=== PATIENT | male | born 1975 | race African-American/Black ===

== ENCOUNTER 2025-02-22 11:52 | Inpatient (IN) | payer MEDICAID, SELFPAY ==
[2025-02-22] VITALS (8 sets, daily range): BP systolic 140–166; BP diastolic 74–108; PULSE 71–94; RESP 16–20; TEMP 36.1–37; O2SAT 97–99; BMI 28.9; BMI 25.9
--- NOTE | 2025-02-22 13:15 | CT_ITS ---
PROCEDURE: ABDOMEN/PELVIS W IV CONT ONLY 02/22/2025 REASON FOR EXAM: ABDOMINAL PAIN 2 day history of abdominal pain. No recent bowel movement. Prior appendectomy. TECHNIQUE: Abdomen and pelvis CT with intravenous contrast. Coronal and Sagittal reconstruction series were provided. PATIENT PREPARATION: Per protocol ORAL CONTRAST TYPE: None. CONTRAST: Isovue-300 VOLUME: 100 mL One or more dose reduction techniques were used (e.g., Automated exposure control, adjustment of the mA and/or kV according to patient size, use of iterative reconstruction technique. RADIATION DOSE SUMMARY: CTDlvol: 20 mGy DLP: 925.86 mGycm COMPARISON: None FINDINGS: Lung bases: Elevation of the posterior medial aspect of the left hemidiaphragm. Coronary artery calcification. Liver: Diffuse fatty infiltration. Gallbladder: Unremarkable Spleen: Normal size. Pancreas: Diffuse enlargement of the pancreas with evidence of peripancreatic edema and small amount of fluid seen in the anterior pararenal spaces bilaterally more prominent on the left side. Findings are in keeping with acute pancreatitis. Adrenals: Unremarkable Kidneys: Unremarkable Bladder: Unremarkable Bowel: Unremarkable Appendix: Status post appendectomy. Lymph nodes: Unremarkable. Vasculature: Mild diffuse atherosclerotic calcifications are noted. Peritoneum / Retroperitoneum: Small amount of fluid seen along the right anterior perirenal space. Bones: Unremarkable CT/Abdomen/Pelvis W IV Cont ONLY IMPRESSION: Findings in keeping with acute pancreatitis as described. Reading Location: [facility]
--- NOTE | 2025-02-22 13:15 | ED.VIS.GI ---
HPI HPI - GI History of Present Illness Chief Complaint: Abd Pain Informant: patient Abdominal Pain/Flank Pain Onset: Days (2) Context: Sudden Onset Timing: Continuous Quality: - (Pressure) Location: Diffuse Worsened by: Nothing Relieved by: - (Stretching) Nausea/Vomiting/Emesis GI Symptom: Positive for Nausea and Vomiting Quality: Positive for Nonbilious; Negative for Blood streaks, Coffee ground or Hematemesis Episodes: 1 Diarrhea/Melena/Hematochezia GI Symptom: Negative for Diarrhea, Melena or Hematochezia Associated Symptoms Associated Symptoms: Negative for Dysuria, Frequency or Hematuria Narrative Narrative: Patient presents with abdominal pain that has been getting worse over the past 2 days. Patient states it began rather suddenly. Patient describes it as a pressure. Patient states it is worse over the upper abdomen and lower abdomen but states it is diffuse across his entire abdomen. Patient states it is better when he is able to put his arms over his head and stretch his abdomen. Patient states nothing makes his pain worse. Patient states he had 1 episode of vomiting. Patient denies any hematemesis or coffee-ground emesis. Patient denies any diarrhea, melena, or hematochezia. Patient denies any urinary complaints. [facility] Medical History (Updated 02/22/25 @ 16:[address] Delfin Begum, DO) Wrist fracture Irregular heart beat Heart attack Diabetes Appendicitis Home Medications ?Medication ?Instructions ?Recorded ?Last Taken ?Type atorvastatin 10 mg tablet 10 mg PO QHS 02/22/25 Unknown History furosemide 20 mg tablet 20 mg PO DAILY 02/22/25 Unknown History insulin glargine 100 unit/mL (3 20 unit subcut QHS 02/22/25 Unknown History mL) subcutaneous pen (Lantus Solostar U-100 Insulin) insulin lispro 100 unit/mL 22 unit subcut TID 02/22/25 Unknown History subcutaneous pen (Humalog KwikPen (U-100) Insulin) metoprolol succinate 50 mg 50 mg PO DAILY 02/22/25 Unknown History tablet,extended release 24 hr pantoprazole 40 mg tablet,delayed 40 mg PO DAILY 02/22/25 Unknown History release sacubitril 49 mg-valsartan 51 mg 1 tab PO BID 02/22/25 Unknown History tablet (Entresto) Allergy/AdvReac Type Severity Reaction Status Date / Time No Known Allergies Allergy Verified 02/22/25 12:00 Surgical History (Updated 02/22/25 @ 14:[address] Delfin Begum DO) Hx of skin graft S/P ORIF (open reduction internal fixation) fracture S/P appendectomy Social History Smoking Status: Current every day smoker tobacco type: cigars ROS ROS ED Constitutional Constitutional ED: Denies chills or fever(s) Eyes Eyes: Denies blurry vision or change in vision ENT ENT ED: Denies rhinorrhea or sore throat Cardiovascular Cardiovascular: Denies chest pain or palpitations Respiratory/Chest Respiratory/Chest: Denies cough or dyspnea Gastrointestinal Gastrointestinal: Reports abdominal pain, nausea and vomiting; Denies diarrhea or melena Genitourinary Genitourinary ED: Denies dysuria or hematuria Musculoskeletal Musculoskeletal: Denies back pain or neck pain Integumentary Denies abscess or rash Neurologic Neurologic: Denies headache(s) or weakness Allergic/Immunologic Allergic/Immunologic ED: Denies mouth swelling or urticaria EXAM Physical Exam Const Vital Signs: 02/22/25 11:55 02/22/25 13:55 02/22/25 15:00 Temperature 96.9 F L Temperature Source Oral Pulse Rate 90 71 71 Respiratory Rate 20 H 19 H 18 Blood Pressure 144/77 H 142/74 H Blood Pressure Mean 99 96 Pulse Ox 99 98 98 Oxygen Delivery Method Room Air 02/22/25 16:41 Temperature 98.1 F Temperature Source Pulse Rate 94 Respiratory Rate 19 H Blood Pressure 166/103 H Blood Pressure Mean 124 Pulse Ox 99 Oxygen Delivery Method Positive well nourished and well developed General Appearance ED: well developed and NAD HEENT Reports moist mucous membranes normocephalic and atraumatic Neck supple and no JVD Resp normal respiratory effort and clear to auscultation bilaterally Cardio regular rate and regular rhythm GI non-distended Palpation: soft and tender epigastric, LLQ, RLQ, LUQ, RUQ, periumbilical and suprapubic; Negative for guarding or rebound tenderness present Neuro CN's II-XII intact bilaterally, moves all extremities and no sensory deficits noted Sensorium / Orientation: alert Motor Exam: strength 5/5 throughout Psych mental status grossly normal and thought process normal MDM MDM MDM Narrative Medical decision making narrative: Differential diagnosis includes bowel obstruction, perforation, electrolyte abnormality, gastritis, pancreatitis, peptic ulcer disease, duodenal ulcer, diabetic ketoacidosis, and urinary tract infection. CT scan of the abdomen and pelvis will be obtained to assess for bowel obstruction, perforation, and pancreatitis. CBC will be obtained to assess for leukocytosis and anemia. Comprehensive metabolic profile will be obtained to assess for hepatic function, renal function, and electrolyte abnormality. Lipase will be obtained to assess for pancreatitis. Urinalysis will be obtained to assess for urinary tract infection and hematuria. History & Record Review Additional record(s) reviewed:: No prior records Lab Data Attestation: I reviewed the patient's lab results. Lab results narrative: CBC was reviewed. There is a slight leukocytosis of 12.9. Platelets were slightly low at 137. The remainder was within normal limits. Comprehensive metabolic profile was reviewed. Potassium was minimally elevated at 5.2. Glucose was slightly elevated at 245. Total bilirubin was mildly elevated at 1.41, AST was 68 and ALT was normal at 30. Alkaline phosphatase was normal. Lipase was reviewed and was elevated at 1836. Urinalysis was reviewed. There is glucosuria of 1000. Ketones were 50, and occult blood was 10. Labs: Laboratory Results - last 24 hr 02/22/25 02/22/25 12:09 16:00 WBC 12.9 H RBC 5.47 Hgb 13.4 Hct 41.5 MCV 75.9 L MCH 24.5 L MCHC 32.3 RDW Std Deviation 42.0 RDW Coeff of Magdalena 15.6 H Plt Count 137 L MPV TNP Immature Gran % (Auto) 0.300 Neut % (Auto) 78.9 H Lymph % (Auto) 9.6 L [place] % (Auto) 10.3 H Eos % (Auto) 0.5 Baso % (Auto) 0.4 Absolute Neuts (auto) 10.2 H Absolute Lymphs (auto) 1.24 Nucleated RBC % 0 Sodium 134 Potassium 5.2 H Chloride 97 L Carbon Dioxide 21.9 Anion Gap 15 BUN 15 Creatinine 1.19 Estim Creat Clear Calc 82.82 Est GFR (MDRD) Non-Af 75 BUN/Creatinine Ratio 12.2 Glucose 245 H Calcium 9.7 Total Bilirubin 1.41 H AST 68 H ALT 30 Alkaline Phosphatase 112 Total Protein 8.4 Albumin 4.6 Globulin 3.8 Albumin/Globulin Ratio 1.2 Lipase 1836 H Urine Color Yellow Urine Clarity Clear Urine pH 6.5 Ur Specific [place] 1.010 Urine Protein 30 H Urine Glucose (UA) 1000 H Urine Ketones 50 H Urine Occult Blood 10 H Urine Nitrite Negative Urine Bilirubin Negative Urine Urobilinogen Normal Ur Leukocyte Esterase Negative Radiography Diagnostic Testing: Clinical Impression(s) from Imaging Studies Abdomen/Pelvis CT 02/22/25 13:15 IMPRESSION: Findings in keeping with acute pancreatitis as described. Reading Location: [facility] CT scan of the abdomen and pelvis was obtained. There is diffuse enlargement of the pancreas and evidence of peripancreatic edema and a small amount of fluid in the anterior pararenal spaces bilaterally. This is consistent with acute pancreatitis. There is no evidence of cholecystitis or cholelithiasis. This was interpreted by the radiologist and was also independently reviewed by myself. Treatment and Re-Evaluation :: Patient was given IV fluids, morphine, and Zofran. Patient was also given a GI cocktail. Patient was having persistent pain. Patient was given a repeat dose of morphine. Patient was advised of his findings. Patient was advised of the need for hospitalization. Patient was agreeable with this. Case was discussed with the hospitalist. She will admit the patient to her service. Patient understood and was agreeable with the plan. All questions were answered. Discharge Plan Dx/Rx/DC Orders Clinical Impression: Acute pancreatitis, Abdominal pain, Diabetes mellitus Disposition Disposition: [facility]
[2025-02-22] MEDS: 0.9% Normal Saline (1000mL) 1,000 ML 999 ML IV (13:25)
[2025-02-22] MEDS: Mag Hydrox/Al Hydrox/Simeth 30 ML UDC PO (13:25)
[2025-02-22] MEDS: Morphine 2 MG/ML Syringe IV (13:25)
[2025-02-22] MEDS: Ondansetron 4 MG/2 ML Vial IV (13:25)
[2025-02-22] MEDS: Lidocaine 2% Viscous15 ML UDC 15 ML PO (13:25)
[2025-02-22 13:31] LABS: Absolute Lymphocyte Count 1.24 X10^3/uL (0.83-4.51); Absolute Neutrophil Count 10.2 X10^3/uL (2.0-7.7); Basophil# 0.05 X10^3/uL; Basophil% 0.4 % (0-1); Eosinophil# 0.07 X10^3/uL; Eosinophils% 0.5 % (0-5); Hematocrit 41.5 % (40-54); Hemoglobin 13.4 g/dL (13.0-16.5); Lymphocyte # 1.24 X10^3/ul (0.83-4.51); Lymphocyte % 9.6 % (19-41); Mean Corp Hgb Conc 32.3 g/dL (32-36); Mean Corpuscular Hgb 24.5 pg (27.0-32.0); Mean Corpuscular Volume 75.9 fL (80-94); Monocyte# 1.33 X10^3/uL; Monocyte% 10.3 % (0-10); NRBC Flagged by Analyzer 0 % (0-5); Neutrophil # 10.17 X10^3/uL (2.7-7.7); Neutrophil % 78.9 % (47-70); Platelet Count 137 K/mm3 (150-450); RBC Distribution Width CV 15.6 % (11.6-14.6); Red Blood Count 5.47 M/mm3 (4.6-6.2); White Blood Count 12.9 K/mm3 (4.4-11.0)
[2025-02-22 14:32] LABS: Lipase 1836 U/L (13-75)
[2025-02-22 14:42] LABS: ALB/GLOB Ratio 1.2 RATIO (0.9-2.4); AST(SGOT) 68 U/L (<=37); Alanine Aminotransfer ALT/SGPT 30 U/L (<=46); Albumin, Serum 4.6 g/dL (3.5-5.0); Alkaline Phosphatase 112 U/L (40-129); Anion Gap 15 (5-15); BUN 15 mg/dL (4-19); BUN/Creat Ratio 12.2 RATIO (10-20); Calcium,Total 9.7 mg/dL (7.6-11.0); Carbon Dioxide 21.9 mmol/L (21.0-32.0); Chloride 97 mmol/L (98-108); Creatinine, Serum 1.19 mg/dL (0.70-1.20); EST Glomerular Filtration Rate 75 (>60); Estimated Creatinine Clearance 82.82 ml/min (50-250); Globulin 3.8 g/dL (2.2-4.2); Glucose 245 mg/dL (70-99); Potassium 5.2 mmol/L (3.3-5.1); Protein, Total 8.4 g/dL (5.9-8.4); Sodium Level 134 mmol/L (133-145); Total Bilirubin 1.41 mg/dL (0.00-1.30)
[2025-02-22 16:11] LABS: Bacteria 0 SEEN /hpf (None Seen); Mucous, Urine 0 SEEN /hpf (<or=2+); Squamous Epithelial Cells - UA 0 SEEN /hpf (0-5)
[2025-02-22] MEDS: Morphine 4 MG/ML Syringe IV ×2 (16:14→18:09)
[2025-02-22 16:17] LABS: Glucose, Dipstick 1000 mg/dl (Normal); Ketone-Dipstick 50 mg/dl (Negative); Leukocyte Esterase-Dipstick Negative /ul (Negative); Nitrite-Dipstick Negative (Negative); Occult Blood-Urine 10 /ul (Negative); Protein-Dipstick 30 mg/dl (Negative); Urine Bilirubin Dipstick Negative (Negative); Urine Urobilinogen Normal (Normal); Urine pH 6.5 (5.0 - 8.0)
[2025-02-22 16:18] LABS: Color, Urine Yellow (Yellow); Urine Clarity Clear (Clear)
--- NOTE | 2025-02-22 16:42 | HP.PCM.HOS_ITS ---
HPI - General General Date of Admission: 02/22/25 Date of Service: 02/22/25 Chief Complaint: Abdominal pain, N/V HPI Narrative The patient is a 49 y/o F w/ PMHx: EtOH abuse (1 pint liquor daily), CAD s/p PCI, HFrEF/Ischemic Cardiomyopathy (EF 35%), Possible CKD stage II per current GFR, HTN, HLD, Diabetes mellitus type II, GERD, Tobacco use who presents to the [facility] ED on 02/22/25 with history of 2 days of continuous diffuse abdominal discomfort with nausea and emesis associated starting rather suddenly described as a pressure-like sensation in the abdomen over both the upper and lower section prompting eventual ED evaluation given not improving. He denies any associated diarrhea. He rates the discomfort to his abdomen 7 out of 10 in severity. He does state that his last alcohol intake was 2 days previously and he normally does a pint of liquor daily. He stopped recently because of probation. He denies any alcohol withdrawal symptoms at this time. Workup in the ED included T96.9 Oral, heart rate 90, BP 144/77, respiratory rate 20, 99% on room air, CBC with WBC 12.9, hemoglobin 13.4, platelet 137 with left shift, CMP with potassium 5.2, chloride 97, BUN/Lauryn 15/1.19, GFR 75, glucose 245, T. bili 1.41, AST 68 otherwise hepatic profile not marked appearing, lipase 1836, urinalysis with protein 30, glucose 2000, ketone 10, occult blood 10 otherwise unremarkable, CT abdomen and pelvis with IV contrast only with findings consistent with acute pancreatitis. In the ED patient ministered 1 L normal saline, GI cocktail, morphine 2 mg IV x 1, morphine 4 mg IV x 1, Zofran 4 mg IV x 1. [facility] Medical History Alcohol abuse Tobacco use HFrEF (heart failure with reduced ejection fraction) Ischemic cardiomyopathy CAD (coronary artery disease) HLD (hyperlipidemia) HTN (hypertension) Diabetes mellitus Home Medications ?Medication ?Instructions ?Recorded ?Last Taken ?Type atorvastatin 10 mg tablet 10 mg PO QHS 02/22/25 Unknow n History furosemide 20 mg tablet 20 mg PO DAILY 02/22/25 Unkn own History insulin glargine 100 unit/mL (3 20 unit subcut QHS Unknown History mL) subcutaneous pen (Lantus Solostar U-100 Insulin) insulin lispro 100 unit/mL 22 unit subcut TID 02/22/25 Unknown History subcutaneous pen (Humalog KwikPen (U-100) Insulin) metoprolol succinate 50 mg 50 mg PO DAILY 02/22/25 Unk nown History tablet,extended release 24 hr pantoprazole 40 mg tablet,delayed 40 mg PO DAILY 02/22 Unknown History release sacubitril 49 mg-valsartan 51 mg 1 tab PO BID 02/22/25 Unknown History tablet (Entresto) Allergy/AdvReac Type Severity Reaction Status Date / Time No Known Allergies Allergy Verified 02/22/25 12:00 Family History Mother Heart disease Hypertension Diabetes CAD (coronary artery disease) Myocardial infarction Father Heart disease Hypertension CAD (coronary artery disease) Myocardial infarction Surgical History S/P coronary angioplasty Hx of skin graft S/P ORIF (open reduction internal fixation) fracture S/P appendectomy Social History household members: spouse and family Smoking Status: Current every day smoker tobacco type: cigarettes Smoking packs per day: 1 Smoking cigarettes per day: 20.0 and cigars alcohol intake: current alcohol intake frequency: 3 or more drinks per day Alcohol type: hard liquor details: ~ 1 pint liquor daily. substance use type: does not use ROS ROS Narrative Admission Review of Systems: CONSTITUTIONAL: No weight loss, fever, chills, + weakness or fatigue. HEENT: Eyes: No visual loss, blurred vision, double vision or yellow sclerae. Ears, Nose, Throat: No hearing loss, sneezing, congestion, runny nose or sore throat. SKIN: No rash or itching, lesions, wounds. CARDIOVASCULAR: No chest pain, chest pressure or chest discomfort, palpitations, edema, orthopnea, syncopal events. RESPIRATORY: No shortness of breath, cough or sputum, wheezing, hemoptysis. GASTROINTESTINAL: + anorexia, nausea, vomiting, abdominal pain. No diarrhea, melena, BRBPR. GENITOURINARY: No dysuria, frequency, urgency or retention. NEUROLOGICAL: No headache, dizziness, syncope, paralysis, ataxia, numbness or tingling in the extremities, focal weakness, change in bowel or bladder control, seizure. MUSCULOSKELETAL: + muscle, back pain, joint pain or stiffness. HEMATOLOGIC: No anemia, bleeding or bruising. LYMPHATICS: No enlarged nodes. No history of splenectomy. PSYCHIATRIC: No history of depression or anxiety. ENDOCRINOLOGIC: No reports of sweating, cold or heat intolerance. No polyuria or polydipsia. ALLERGIES: No history of asthma, hives, eczema or rhinitis. Vital Signs Vital Signs Vital Signs: 02/22/25 11:55 02/22/25 13:55 02/22/25 15:00 Temperature 96.9 F L Temperature Source Oral Pulse Rate 90 71 71 Respiratory Rate 20 H 19 H 18 Blood Pressure 144/77 H 142/74 H Blood Pressure Mean 99 96 Pulse Ox 99 98 98 Oxygen Delivery Method Room Air Weight Weight: 195 lb 15.855 oz Body Mass Index (BMI) 28.9 Physical Exam Narrative Physical Examination: General: Awake, alert, oriented x 3 and cooperative, laying in ED bed, notes persistent abdominal pain ongoing, 7 out of 10 in severity. Skin: Normal color, normal turgor, no icterus, no cyanosis. HEENT: AT/NC, EOMI, PERRLA, moderately dry MM, no carotid bruits or JVD noted. Lungs: Mildly diminished, greater bases, appropriate effort, no rales, ronchi or wheezing. Heart: Regular rate and rhythm; no gallop, rub audible. Abdomen: Soft, mild generalized discomfort to palpation primarily in the upper bilateral quadrants as well as epigastric region but no rebound or guarding currently, no marked distention evident, mildly hyperactive BS, no obvious HSM however difficult evaluation with deeper palpation attempts given discomfort. Extremities: No cyanosis, clubbing, or edema. Neurological: Patient awake, alert, oriented as noted,, cognitive function intact; pupils equally reactive to light and accommodation, cranial nerves grossly normal, moving all 4 extremities, no focal deficits, strength moderately globally decreased secondary to acute presentation complaints. Psychiatric: Affect appears mildly uncomfortable, no acute evidence of depressive or anxiety feelings. Results Lab / Micro Data 02/22/25 12:09 02/22/25 12:09 Labs: Laboratory Results - last 24 hr 02/22/25 12:09: WBC 12.9 H, RBC 5.47, Hgb 13.4, Hct 41.5, MCV 75.9 L, MCH 24.5 L , MCHC 32.3, RDW Std Deviation 42.0, RDW Coeff of Magdalena 15.6 H, Plt Count 137 L, MPV TNP, Immature Gran % (Auto) 0.300, Neut % (Auto) 78.9 H, Lymph % (Auto) 9.6 L, [place] % (Auto) 10.3 H, Eos % (Auto) 0.5, Baso % (Auto) 0.4, Absolute Neuts (auto) 10.2 H, Absolute Lymphs (auto) 1.24, Nucleated RBC % 0, Sodium 134, P otassium 5.2 H, Chloride 97 L, Carbon Dioxide 21.9, Anion Gap 15, BUN 15, Creatinine 1.19, Estim Creat Clear Calc 82.82, Est GFR (MDRD) Non-Af 75, BUN/Creatinine Ratio 12.2, Glucose 245 H, Calcium 9.7, Total Bilirubin 1.41 H, A ST 68 H, ALT 30, Alkaline Phosphatase 112, Total Protein 8.4, Albumin 4.6, Globulin 3.8, Albumin/Globulin Ratio 1.2, Lipase 1836 H 02/22/25 16:00: Urine Color Yellow, Urine Clarity Clear, Urine pH 6.5, Ur Specific [place] 1.010, Urine Protein 30 H, Urine Glucose (UA) 1000 H, Urine Ketones 50 H, Urine Occult Blood 10 H, Urine Nitrite Negative, Urine Bilirubin Negative, Urine Urobilinogen Normal, Ur Leukocyte Esterase Negative Imaging Radiology Impression Abdomen/Pelvis CT 02/22/25 13:15 IMPRESSION: Findings in keeping with acute pancreatitis as described. Reading Location: [id number] Assessment & Plan Assessment/Plan (1) Acute pancreatitis: PLAN: Plan The patient is a 49 y/o F w/ PMHx: EtOH abuse (1 pint liquor daily), CAD s/p PCI, HFrEF/Ischemic Cardiomyopathy (EF 35%), Possible CKD stage II per current GFR, HTN, HLD, Diabetes mellitus type II, GERD, Tobacco use who presents to the [facility] ED on 02/22/25 with history of 2 days of continuous diffuse abdominal discomfort with nausea and emesis associated starting rather suddenly described as a pressure-like sensation in the abdomen over both the upper and lower section prompting eventual ED evaluation given not improving. He denies any associated diarrhea. #1. Acute pancreatitis w/ abdominal pain, N/V with mild hyper bilirubinemia, transaminitis likely secondary to Chronic EtOH abuse: Admission CBC w/ WBC 12.9 with left shift, CMP w/ T. bili mildly elevated 1.41, AST/ALT 68/30, Lipase 1836. Will admit to [facility], maintain on IVFs, NPO with sips of water with medications noted clinically improving, IV PPI, IV/po pain control, trend lipase, CMP. Will obtain RUQ US, FLP to be thorough; however, EtOH consumption risk likely primary etiology for pancreatitis. #2. Hyperkalemia, suspect false given hemolysis present: Admission potassium 5.2 however noted be hemolyzed, suspect falsely elevated as result, will repeat CMP in AM. #3. Thrombocytopenia, unclear chronicity: Admission platelet 137, no prior history, certainly could be acute, stress response, will continue to trend CBC to further elucidate. #4. Posible Chronic Kidney Disease Stage II per GFR trending but no comparison: Admission BUN/Cr 15/.19, GFR 75, baseline renal function unknown, repeat BMP in AM to elucidate chronicity. #5. Hypertension: Continue home regimen including metoprolol, Entresto, temporarily holding Lasix given need for hydration with acute pancreatitis, resume once appropriate, PRN hydralazine. #6. Hyperlipidemia: Will continue patient on statin therapy, FLP in AM. #7. Diabetes mellitus type II: Will continue home insulin regimen however may decrease to one half pending blood sugar assessments while n.p.o., n.p.o. status given acute presentation as noted, maintain acute 6-hour accu checks w/ ISS. #8. Tobacco Abuse: Encouraged cessation, inpatient consultation per RT, NR if desired. #9. CAD: Status post PCI x 2 probably greater than 5 years prior but he is uncertain exactly, continue aspirin, statin, metoprolol, Entresto home regimen. #10. HFrEF/ischemic cardiopathy: Patient reports EF of 35 to 36% most recently, notes that they continue to monitor him in case he needs an AICD, given this history will very gently hydrate and will temporarily hold Lasix but immediately resume once clinically improving, continue aspirin, statin, metoprolol, Entresto. #11. EtOH Abuse: Patient notes routine consumption of 1 pint liquor per day but notes he has had none for 2 days secondary to recently having an ankle tracer placed. Will maintain on CIWA protocol, MVI, thiamine and folic acid. Case management consulted. #12. DVT prophylaxis: Lovenox. Charges/Coding Visit Charges Inpatient E&M: 12553 Init Hosp L3
--- NOTE | 2025-02-22 17:32 | US_ITS ---
PROCEDURE: GALLBLADDER 02/22/2025 REASON FOR EXAM: PANCREATITIS COMPARISON: CT abdomen and pelvis 02/23/2020 FINDINGS: Liver: Diffusely echogenic suggesting fatty infiltration. Mild hepatomegaly, craniocaudal length 17 cm. No focal lesion. Gallbladder: Mildly distended gallbladder. No significant wall thickening. Negative sonographic Beck's sign. No gallstones or sludge. Mild pericholecystic fluid. Common bile duct: Mildly dilated 5 mm.. Pancreas: Increased edema about the pancreas, compatible with known acute pancreatitis. Other: Right kidney: 10.6 cm. No calculi or hydronephrosis. US/Gallbladder IMPRESSION: No evidence of acute cholecystitis. Hepatomegaly and steatosis. Findings compatible with acute pancreatitis. Reading [facility]
[2025-02-22 18:02] LABS: Magnesium 2.1 mg/dL (1.5-2.2); Phosphorus 3.1 mg/dL (2.7-4.5)
[2025-02-22] MEDS: 0.9% Normal Saline (1000mL) 1,000 ML 100 ML IV (18:08)
[2025-02-22 18:15] LABS: Red Blood Cells-Urine 0-5 SEEN /hpf (0-5); White Blood Cells 0-5 SEEN /hpf (0-5)
[2025-02-22 18:27] LABS: Amphetamine Urine PRESUMPTIVE POSITIVE (<1000 ng/mL); Barbiturate Urine NEGATIVE (< 200 ng/mL); Benzodiazepine Urine NEGATIVE (< 200 ng/mL); Buprenorphine Urine NEGATIVE (< 200 ng/mL); Cocaine Urine NEGATIVE (< 300 ng/mL); Fentanyl, Urine NEGATIVE; Methadone Urine NEGATIVE (< 300 ng/mL); Opiates Urine PRESUMPTIVE POSITIVE (< 300 ng/mL); Oxycodone, Urine NEGATIVE (< 100 ng/mL); PCP Urine NEGATIVE (< 25 ng/mL); THC Urine NEGATIVE (< 50 ng/mL)
[2025-02-22] MEDS: Insulin Lispro 100 UNIT/ML INSULN.PEN SC (18:32)
[2025-02-22] MEDS: Ketorolac 15 MG/ML Vial IV (18:33)
[2025-02-22 18:39] LABS: Bedside Glucose 222 mg/dL (74-106)
[2025-02-22 19:48] LABS: Alcohol, Blood (Medical)-Serum < 10.1 mg/dL (<=10.0)
[2025-02-22] MEDS: Atorvastatin Calcium 10 MG Tablet PO (21:47)
[2025-02-22] MEDS: Pantoprazole Sodium 40 MG in 0.9% Normal Saline (100mL MB+) 100 ML 330 MG IV (21:47)
[2025-02-22] MEDS: Insulin Glargine-YFGN 100 UNIT/ML Pen 20 UNIT SC (21:57)
[2025-02-22] MEDS: SACUBITRIL/VALSARTAN 49-51 MG TABLET 1 EACH PO (21:57)
[2025-02-22] MEDS: Metoprolol(XL)Succ 50 MG Tablet PO (22:08)
[2025-02-22] MEDS: oxyCODONE 5 MG Tablet PO (22:08)
[2025-02-22 22:45] LABS: Bedside Glucose 147 mg/dL (74-106)
[2025-02-23] VITALS (7 sets, daily range): BP systolic 133–143; BP diastolic 78–105; PULSE 64–98; RESP 15–16; TEMP 36.4–37; O2SAT 96–100; BMI 28.0
[2025-02-23] MEDS: Insulin Lispro 100 UNIT/ML INSULN.PEN SC ×3 (01:11→22:09)
[2025-02-23] MEDS: Ketorolac 15 MG/ML Vial IV ×3 (01:11→17:09)
[2025-02-23 01:38] LABS: Bedside Glucose 150 mg/dL (74-106)
[2025-02-23] MEDS: 0.9% Normal Saline (1000mL) 1,000 ML 100 ML IV (04:11)
[2025-02-23] MEDS: Acetaminophen 325 MG Tablet 650 MG PO (05:21)
[2025-02-23] MEDS: oxyCODONE 5 MG Tablet PO ×2 (05:21→22:02)
[2025-02-23] MEDS: Ondansetron 4 MG/2 ML Vial IV (05:21)
[2025-02-23 05:56] LABS: Bedside Glucose 109 mg/dL (74-106)
[2025-02-23 06:46] LABS: Absolute Lymphocyte Count 1.58 X10^3/uL (0.83-4.51); Absolute Neutrophil Count 8.5 X10^3/uL (2.0-7.7); Basophil# 0.03 X10^3/uL; Basophil% 0.3 % (0-1); Eosinophils% 1.7 % (0-5); Hematocrit 37.6 % (40-54); Hemoglobin 12.3 g/dL (13.0-16.5); Lymphocyte # 1.58 X10^3/ul (0.83-4.51); Lymphocyte % 13.4 % (19-41); Mean Corp Hgb Conc 32.7 g/dL (32-36); Mean Corpuscular Hgb 24.6 pg (27.0-32.0); Mean Corpuscular Volume 75.2 fL (80-94); Mean Platelet Vol. 11.1 fl (6.2-12.0); Monocyte# 1.41 X10^3/uL; Monocyte% 11.9 % (0-10); NRBC Flagged by Analyzer 0 % (0-5); Neutrophil # 8.51 X10^3/uL (2.7-7.7); Platelet Count 169 K/mm3 (150-450); RBC Distribution Width CV 15.1 % (11.6-14.6); RBC Distribution Width SD 40.5 fl (35.1-43.9); White Blood Count 11.8 K/mm3 (4.4-11.0)
[2025-02-23 07:14] LABS: Cholesterol 180 mg/dL (<=200); High Density Lipoprotein 67 mg/dL; Low Density Lipoprotein Calc. 97 mg/dL; Triglycerides 81 mg/dL; Very Low Density Lipoprotein 16 mg/dL (5-40)
[2025-02-23 07:30] LABS: Lipase 1186 U/L (13-75)
[2025-02-23 07:31] LABS: ALB/GLOB Ratio 1.2 RATIO (0.9-2.4); AST(SGOT) 44 U/L (<=37); Alanine Aminotransfer ALT/SGPT 21 U/L (<=46); Albumin, Serum 3.6 g/dL (3.5-5.0); Alkaline Phosphatase 88 U/L (40-129); Anion Gap 10 (5-15); BUN 13 mg/dL (4-19); BUN/Creat Ratio 11.6 RATIO (10-20); Carbon Dioxide 23.3 mmol/L (21.0-32.0); Chloride 106 mmol/L (98-108); Creatinine, Serum 1.16 mg/dL (0.70-1.20); EST Glomerular Filtration Rate 77 (>60); Glucose 92 mg/dL (70-99); Potassium 3.9 mmol/L (3.3-5.1); Protein, Total 6.6 g/dL (5.9-8.4); Sodium Level 139 mmol/L (133-145); Total Bilirubin 1.03 mg/dL (0.00-1.30)
--- NOTE | 2025-02-23 07:51 | PN.HOSP_ITS ---
Reason for Visit Reason for Visit: Diagnoses Acute pancreatitis without necrosis or infection, unspecified (02/22/25) Subjective Subjective Feeling better. Objective Data Objective Data Vital Signs: Vital Signs Temp Pulse Resp BP Pulse Ox O2 Del Method 36.8 C 76 16 136/105 H 99 Room Air 02/23/25 05:10 02/23/25 05:10 02/23/25 05:10 02/23/25 05:10 02/23/25 05:10 02/23/25 05:10 Oxygen Delivery Method Room Air Weight: 86 kg Body Mass Index (BMI) 28.0 Intake & Output: Intake and Output for Last 24 Hours 02/21/25 02/22/25 02/23/25 23:59 23:59 23:59 Intake Total 1160 / 1160 1050 / 1050 Balance 1160 / 1160 1050 / 1050 Lab / Micro Data 02/23/25 06:06 02/23/25 06:06 Labs: Laboratory Results - last 24 hr 02/22/25 12:09: WBC 12.9 H, RBC 5.47, Hgb 13.4, Hct 41.5, MCV 75.9 L, MCH 24.5 L , MCHC 32.3, RDW Std Deviation 42.0, RDW Coeff of Magdalena 15.6 H, Plt Count 137 L, MPV TNP, Immature Gran % (Auto) 0.300, Neut % (Auto) 78.9 H, Lymph % (Auto) 9.6 L, [place] % (Auto) 10.3 H, Eos % (Auto) 0.5, Baso % (Auto) 0.4, Absolute Neuts (auto) 10.2 H, Absolute Lymphs (auto) 1.24, Nucleated RBC % 0, Sodium 134, P otassium 5.2 H, Chloride 97 L, Carbon Dioxide 21.9, Anion Gap 15, BUN 15, Creatinine 1.19, Estim Creat Clear Calc 82.82, Est GFR (MDRD) Non-Af 75, BUN/Creatinine Ratio 12.2, Glucose 245 H, Calcium 9.7, Phosphorus 3.1, Magnesium 2.1, Total Bilirubin 1.41 H, AST 68 H, ALT 30, Alkaline Phosphatase 112, Total Protein 8.4, Albumin 4.6, Globulin 3.8, Albumin/Globulin Ratio 1.2, Lipase 1836 H 02/22/25 16:00: Urine Color Yellow, Urine Clarity Clear, Urine pH 6.5, Ur Specific [place] 1.010, Urine Protein 30 H, Urine Glucose (UA) 1000 H, Urine Ketones 50 H, Urine Occult Blood 10 H, Urine Nitrite Negative, Urine Bilirubin Negative, Urine Urobilinogen Normal, Ur Leukocyte Esterase Negative, Urine RBC 0-5 SEEN, Urine WBC 0-5 SEEN, Ur Squamous Epith Cells 0 SEEN, Urine Bacteria 0 SEEN, Urine Mucus 0 SEEN, Urine Opiates Screen PRESUMPTIVE POSITIVE, U Buprenorphine Qual NEGATIVE, Ur Oxycodone Screen NEGATIVE, Urine Methadone Screen NEGATIVE, Urine Fentanyl Screen NEGATIVE, Ur Barbiturates Screen NEGATIVE, Ur Phencyclidine Scrn NEGATIVE, Ur Amphetamines Screen PRESUMPTIVE POSITIVE, U Benzodiazepines Scrn NEGATIVE, Urine Cocaine Screen NEGATIVE, U Cannabinoids Screen NEGATIVE 02/22/25 18:15: POC Glucose 222 H 02/22/25 18:25: Ethyl Alcohol < 10.1 02/22/25 21:52: POC Glucose 147 H 02/23/25 01:10: POC Glucose 150 H 02/23/25 05:13: POC Glucose 109 H 02/23/25 06:06: WBC 11.8 H, RBC 5.00, Hgb 12.3 L, Hct 37.6 L, MCV 75.2 L, MCH 24.6 L, MCHC 32.7, RDW Std Deviation 40.5, RDW Coeff of Magdalena 15.1 H, Plt Count 169, MPV 11.1, Immature Gran % (Auto) 0.700, Neut % (Auto) 72.0 H, Lymph % (Auto) 13.4 L, [place] % (Auto) 11.9 H, Eos % (Auto) 1.7, Baso % (Auto) 0.3, A bsolute Neuts (auto) 8.5 H, Absolute Lymphs (auto) 1.58, Nucleated RBC % 0, Sodium 139, Potassium 3.9, Chloride 106, Carbon Dioxide 23.3, Anion Gap 10, BUN 13, Creatinine 1.16, Estim Creat Clear Calc 83.70, Est GFR (MDRD) Non-Af 77, BUN/Creatinine Ratio 11.6, Glucose 92, Calcium 9.0, Total Bilirubin 1.03, AST 44 H, ALT 21, Alkaline Phosphatase 88, Total Protein 6.6, Albumin 3.6, Globulin 3.0, Albumin/Globulin Ratio 1.2, Triglycerides 81, Cholesterol 180, LDL Cholesterol, Calc 97, VLDL Cholesterol 16, HDL Cholesterol 67, Cholesterol/HDL Ratio 2.70, Lipase 1186 H Radiography Diagnostic Testing: Radiology Impression Abdomen/Pelvis CT 02/22/25 13:15 IMPRESSION: Findings in keeping with acute pancreatitis as described. Reading Location: [id number] Gallbladder Ultrasound 02/22/25 17:32 IMPRESSION: No evidence of acute cholecystitis. Hepatomegaly and steatosis. Findings compatible with acute pancreatitis. [facility] Physical Exam Const alert and no apparent distress HEENT head/scalp atraumatic and moist oral mucous membranes Resp normal respiratory effort and no retractions GI normal to inspection, nondistended, normoactive bowel sounds, soft to palpation, non-tender and non-distended Extremity normal to inspection and full ROM Assessment & Plan Assessment/Plan (1) Acute pancreatitis: PLAN: Improved. Suspect alcohol-induced IVF, pain control. Strongly advised complete cessation. PLAN: Plan Alcohol abuse: last drink 2-days prior to admission. PRN lorazepam. Thiamine and folate. Expectant monitor for alcohol withdrawal. VTE prophylaxis: LMWH. Charges/Coding Visit Charges Inpatient E&M: 01503 Subs Hosp L2
[2025-02-23] MEDS: SACUBITRIL/VALSARTAN 49-51 MG TABLET 1 EACH PO ×2 (08:19→21:55)
[2025-02-23] MEDS: Enoxaparin 40 MG/0.4 ML Syringe SC (08:19)
[2025-02-23] MEDS: Multivitamins,Ther W-Minerals Tablet 1 TABLET PO (08:19)
[2025-02-23] MEDS: Thiamine Hydrochloride 100 MG Tablet PO (08:19)
[2025-02-23] MEDS: Aspirin 81 MG TAB.CHEW PO (08:19)
[2025-02-23] MEDS: Folic Acid 1 MG Tablet PO (08:19)
[2025-02-23] MEDS: Pantoprazole Sodium 40 MG in 0.9% Normal Saline (100mL MB+) 100 ML 330 MG IV ×2 (08:30→22:02)
[2025-02-23] MEDS: Metoprolol(XL)Succ 50 MG Tablet PO (08:30)
[2025-02-23] MEDS: Empagliflozin 25 MG Tablet PO (12:05)
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
[2025-02-23 12:19] LABS: Bedside Glucose 243 mg/dL (74-106)
[2025-02-23] MEDS: Senna/Docusate Sodium 1 Tablet 2 TABLET PO ×2 (15:55→22:02)
[2025-02-23] MEDS: Mag Hydrox/Al Hydrox/Simeth 30 ML UDC PO (15:55)
--- NOTE | 2025-02-23 15:58 | NURSING ---
pt c/o abd pain, declined narcotic at this time, he wanted to try stool softner and mylanta and ambulating first. aware to call if he changes his mind
[2025-02-23] MEDS: 0.9% Normal Saline (1000mL) 1,000 ML 150 ML IV (17:09)
[2025-02-23 17:22] LABS: Bedside Glucose 121 mg/dL (74-106)
[2025-02-23] MEDS: Insulin Glargine-YFGN 100 UNIT/ML Pen 20 UNIT SC (21:55)
[2025-02-23] MEDS: Atorvastatin Calcium 10 MG Tablet PO (21:55)
[2025-02-23 22:51] LABS: Bedside Glucose 223 mg/dL (74-106)
[2025-02-24 02:53] VITALS: BP 121/79; PULSE 77; RESP 16; TEMP 36.7; O2SAT 98
[2025-02-24] MEDS: Ketorolac 15 MG/ML Vial IV (02:53)
[2025-02-24 05:45] VITALS: BMI 27.9
[2025-02-24 06:05] LABS: Bedside Glucose 95 mg/dL (74-106)
[2025-02-24 07:53] VITALS: BP 137/88; PULSE 77; RESP 15; TEMP 36.7; O2SAT 98
[2025-02-24 07:56] VITALS: PULSE 77
[2025-02-24] MEDS: SACUBITRIL/VALSARTAN 49-51 MG TABLET 1 EACH PO (07:56)
[2025-02-24] MEDS: Metoprolol(XL)Succ 50 MG Tablet PO (07:56)
[2025-02-24] MEDS: Thiamine Hydrochloride 100 MG Tablet PO (07:57)
[2025-02-24] MEDS: Empagliflozin 25 MG Tablet PO (07:57)
[2025-02-24] MEDS: Aspirin 81 MG TAB.CHEW PO (07:57)
[2025-02-24] MEDS: Enoxaparin 40 MG/0.4 ML Syringe SC (07:57)
[2025-02-24] MEDS: Folic Acid 1 MG Tablet PO (07:57)
[2025-02-24] MEDS: Multivitamins,Ther W-Minerals Tablet 1 TABLET PO (07:57)
[2025-02-24] MEDS: Acetaminophen 325 MG Tablet 650 MG PO (08:05)
[2025-02-24] MEDS: oxyCODONE 5 MG Tablet PO (08:06)
--- NOTE | 2025-02-24 11:42 | PCM.DC ---
Discharge Instructions Diet Discharge Diet: Low fat / Low cholesterol DC O2, CPAP, BIPAP needs Home O2 Discharge instructions: No Dressing / Incision Discharge Activity: Return to Normal Activity Weight Bearing Status: Weight bearing as tolerated Dressing / Incision Call your doctor if you observe: Fever of 101 or Higher, Shortness of breath and Swelling in the ankles Follow Up Care Test Results: Test results from this visit will be discussed in further detail at your follow-up appointment, if applicable. Discharge Plan Admission Admit Date/Time: 02/22/25 16:54 Primary Reason for Your Visit: acute pancreatitis Attending Provider: Rose Mary Burger Primary Care Provider: Care Physician,No Primary Consulting Providers: Andra May; Delfin Roman Instructions Patient Instructions: Pancreatitis Acute Dc Discharge Orders/Prescriptions Prescriptions: Continued metoprolol succinate 50 mg tablet extended release 24 hr 50 mg PO DAILY insulin glargine [Lantus Solostar U-100 Insulin] 100 unit/mL (3 mL) insulin pen 20 unit subcut QHS sacubitril-valsartan [Entresto] 49-51 mg tablet 1 tab PO BID furosemide 20 mg tablet 20 mg PO DAILY atorvastatin 10 mg tablet 10 mg PO QHS pantoprazole 40 mg tablet,delayed release (DR/EC) 40 mg PO DAILY insulin lispro [Humalog KwikPen Insulin] 100 unit/mL insulin pen 22 unit subcut TID Patient Comments: [facility] STATES PT HASNT FILLED SINCE 12/07 FOR 30 DS SO UNSURE IF STILL TAKING dapagliflozin propanediol [Farxiga] 10 mg tablet 10 mg PO DAILY Referrals / Follow Up: Lona Carrillo MD [Med Staff - Active Staff] - Within 2 Weeks (see to establish PCP care) Care Physician,No Primary [Primary Care Provider] - Disposition Disposition (needs filled in before D/C Order can be placed): Home, Self Care
--- NOTE | 2025-02-24 11:43 | PCM.DC.SUM ---
Providers Date of Admission: 02/22/25 Date of Discharge: 02/24/25 Primary Care Physician: No Primary Care Phys Reason For Visit: ACUTE PANCREATITIS Diagnosis Discharge Diagnosis (1) Acute pancreatitis: Status: Acute Code(s): K85.90 - Acute pancreatitis without necrosis or infection, unspecified Medications at Discharge Home Medications atorvastatin 10 mg tablet 10 mg PO QHS 02/22/25 furosemide 20 mg tablet 20 mg PO DAILY 02/22/25 insulin glargine 100 unit/mL (3 mL) subcutaneous pen (Lantus Solostar U-100 Insulin) 20 unit subcut QHS 02/22/25 insulin lispro 100 unit/mL subcutaneous pen (Humalog KwikPen (U-100) Insulin) 22 unit subcut TID 02/22/25 metoprolol succinate 50 mg tablet,extended release 24 hr 50 mg PO DAILY 02/22/25 pantoprazole 40 mg tablet,delayed release 40 mg PO DAILY 02/22/25 sacubitril 49 mg-valsartan 51 mg tablet (Entresto) 1 tab PO BID 02/22/25 dapagliflozin propanediol 10 mg tablet (Farxiga) 10 mg PO DAILY diabetes 02/23/25 Hospital Course Operations None Procedures None Summary of Care Provided Minutes Spent on Discharge: 45 Hospital Course: Patient is a 49-year-old male with past medical history as outlined was admitted through the ED on 02/22/2025 with complaint of diffuse abdominal pain for 2 days prior to admission with associated nausea and vomiting. He admitted to a history of alcohol use disorder and said his last 1 was 2 days prior to admission. He usually drank a pint of liquor daily. On admission labs were essentially unremarkable and CT of the abdomen and pelvis showed evidence of acute pancreatitis. Lipase was also elevated at thousand 836. He was hydrated with IV fluids and initially kept NPO. Abdominal pain improved and he was started on a diet which he tolerated. He remained stable and was discharged home on 02/24/2025. He was counseled strongly to abstain from alcohol use. He is follow-up with his primary care doctor within 1 to 2 weeks. Patient did not have a PCP so was referred to [facility]. Patient seen and examined prior to discharge. He had no active complaints and felt well. Review of symptoms otherwise negative. Labs and vitals reviewed. Home medication reviewed and reconciled. Physical Exam Const alert, oriented x3 and no apparent distress General Appearance: cooperative and comfortable Orientation / Consciousness: awake Exam Limitations: no limitations HEENT normocephalic, head/scalp atraumatic, hearing grossly normal bilaterally and moist oral mucous membranes Mouth: oral and palatal mucosa normal Eyes PERRL, EOMs intact bilaterally and conjunctivae normal Neck no lymphadenopathy and supple Resp normal respiratory effort, no retractions, no use of accessory muscles and clear to auscultation bilaterally Cardio regular rate, regular rhythm, S1 normal heart sound, S2 normal heart sound and no murmurs GI normal to inspection, nondistended, normoactive bowel sounds, soft to palpation, non-tender and non-distended Extremity normal to inspection, full ROM and no clubbing, cyanosis or edema Skin no rashes or lesions noted Neuro oriented x3, CN's II-XII intact bilaterally, moves all extremities and no focal motor deficits Sensorium / Orientation: awake and alert Motor Exam: strength 5/5 throughout Weight / BMI Weight Weight: 188 lb 11.451 oz Body Mass Index (BMI) 27.9 ABG / Lab / Microbiology Data 02/23/25 06:06 02/23/25 06:06 Laboratory: Laboratory Results - last 24 hr 02/23/25 17:03: POC Glucose 121 H 02/23/25 21:54: POC Glucose 223 H 02/24/25 05:46: POC Glucose 95 D/C Instructions Discharge Diet: Low fat / Low cholesterol Discharge Activity: Return to Normal Activity Weight Bearing Status: Weight bearing as tolerated Call your doctor if you observe: Fever of 101 or Higher, Shortness of breath and Swelling in the ankles DC O2, CPAP, BIPAP Needs Home O2 Discharge instructions: No DC home with Oxygen: No Meaningful Use Info Meaningful Use Meaningful Use Diagnoses (Choose all that apply): None applicable Ischemic Stroke Statin Dosing Therapy Reference: STATIN DOSE THERAPY REFERENCE: * Patients > 75 years receive moderate or high dose statin therapy. * Patients 75 years or YOUNGER should receive HIGH intensity statin dose unless contraindicated. You will be required to document reason for non-treatment if statin daily dose does not meet guidelines. HIGH DOSE STATIN THERAPY DAILY Atorvastatin > than or = to 40 mg Rosuvastatin > than or = to 20 mg Amlodipine + Atorvastatin > than or = to 2.5/40 mg Ezetimibe + Simvastatin 10/80 mg Simvastatin 80mg Discharge Plan Admission Admit Date/Time: 02/22/25 16:54 Primary Reason for Your Visit: acute pancreatitis Attending Provider: Rose Mary Burger Primary Care Provider: Care Physician,No Primary Consulting Providers: Andra May; Delfin Roman Instructions Patient Instructions: Pancreatitis Acute Dc Discharge Orders/Prescriptions Prescriptions: Continued metoprolol succinate 50 mg tablet extended release 24 hr 50 mg PO DAILY insulin glargine [Lantus Solostar U-100 Insulin] 100 unit/mL (3 mL) insulin pen 20 unit subcut QHS sacubitril-valsartan [Entresto] 49-51 mg tablet 1 tab PO BID furosemide 20 mg tablet 20 mg PO DAILY atorvastatin 10 mg tablet 10 mg PO QHS pantoprazole 40 mg tablet,delayed release (DR/EC) 40 mg PO DAILY insulin lispro [Humalog KwikPen Insulin] 100 unit/mL insulin pen 22 unit subcut TID Patient Comments: [facility] STATES PT HASNT FILLED SINCE 12/07 FOR 30 DS SO UNSURE IF STILL TAKING dapagliflozin propanediol [Farxiga] 10 mg tablet 10 mg PO DAILY Referrals / Follow Up: Lona Carrillo MD [Med Staff - Active Staff] - Within 2 Weeks (see to establish PCP care) Care Physician,No Primary [Primary Care Provider] - Disposition Disposition (needs filled in before D/C Order can be placed): Home, Self Care Charges/Coding Visit Charges Inpatient E&M: 61471 Disch Hosp >30min
--- NOTE | 2025-02-24 12:09 | CASEMGMT ---
Social Work SW met with pt and offered to assist pt with completing HCPOA and living will. Pt does not want to complete at this time. Pt given Advance Directive Rack Card and made aware he can complete documents as an outpatient. YEE George
== END 2025-02-24 14:05 | disposition home or self-care (01) | DRG 282 ==
LOC: ED 16:25 → MS3 17:12
PROVIDERS: Admitting Provider Family Medicine; Emergency Provider Emergency Medicine; Visit Provider Student in an Organized Health Care Education/Training Program
DX: K85.90 Acute pancreatitis without necrosis or infection, unspecified (principal); E11.65 Type 2 diabetes mellitus with hyperglycemia; I50.22 Chronic systolic (congestive) heart failure; I12.9 Hypertensive chronic kidney disease with stage 1 through stage 4 chronic kidney disease, or unspecified chronic kidney disease; F10.10 Alcohol abuse, uncomplicated; Z79.4 Long term (current) use of insulin; I25.10 Atherosclerotic heart disease of native coronary artery without angina pectoris; I25.5 Ischemic cardiomyopathy; F17.210 Nicotine dependence, cigarettes, uncomplicated; E78.5 Hyperlipidemia, unspecified; K21.9 Gastro-esophageal reflux disease without esophagitis; E87.5 Hyperkalemia; F17.290 Nicotine dependence, other tobacco product, uncomplicated; N18.2 Chronic kidney disease, stage 2 (mild); K92.1 Melena; Z83.3 Family history of diabetes mellitus; Z79.82 Long term (current) use of aspirin; Z79.899 Other long term (current) drug therapy; Z79.02 Long term (current) use of antithrombotics/antiplatelets; Z95.5 Presence of coronary angioplasty implant and graft
CPT/HCPCS: 36415; 74177; 76705; 80053; 80061; 80307; 81001; 82077; 82962; 83690; 83735; 84100; 85025; 94668; 99285; Q9967; A4216; J2405

== ENCOUNTER 2025-03-21 14:46 | Emergency (ER) | payer MEDICAID, SELFPAY ==
[2025-03-21 14:48] VITALS: BP 147/85; PULSE 83; RESP 16; TEMP 37.1; O2SAT 98; BMI 25.3
--- NOTE | 2025-03-21 15:31 | ED.RN ---
PT STATES YOU CAN GIVE MY ROOM TO SOMEONE ELSE, I AM GOING TO GO AHEAD AND GO HOME NOW. I'M JUST GOING TO STAY AWAY FROM THE [employer] PT EXITED DEPARTMENT
[2025-03-21 15:32] LABS: Bedside Glucose > 500 mg/dL (74-106)
== END 2025-03-21 15:32 | disposition left against medical advice (07) ==
LOC: ED 15:35
DX: Z53.21 Procedure and treatment not carried out due to patient leaving prior to being seen by health care provider (principal)
CPT/HCPCS: 82962